=== PATIENT | male | born 1960 | race African-American/Black ===

== ENCOUNTER 2018-01-28 17:04 | Emergency (ER) | payer OTHER ==
[~2018-01-28] VITALS: Ht 193 cm; Wt 111.1 kg
[~2018-01-28 17:04] MED LIST: ACETAMINOPHEN-1 EAC1 PO; CALCIUM 500 +1 EAC5 PO; CARTIA XT120 M1 PO; CENTRUM SILVER1 EAC2 PO; COZAAR 50 MG TA50 M1 PO; ELIQUIS5 MG PO; IRON325 PO; NORCO 7.5-3251 EACH PO
[2018-01-28] MEDS ORDERED: HYDRALAZINE 2525 MG PO (17:18)
[2018-01-28] MEDS ORDERED: FOLGARD TABLET1 EAC1 PO (17:20)
[2018-01-28] MEDS ORDERED: VITAMIN B-12500 MCG PO (17:20)
[2018-01-28 17:39] LABS: URINE BILIRUBIN NEGATIVE (Negative); URINE BLOOD NEGATIVE (Negative); URINE CLARITY CLEAR; URINE COLOR YELLOW; URINE GLUCOSE-RANDOM NEGATIVE (Negative); URINE KETONES NEGATIVE (Negative); URINE LEUKOCYTES NEGATIVE (Negative); URINE NITRITE NEGATIVE (Negative); URINE PROTEIN 1+ (Negative); URINE UROBILINOGEN 0.2 E.U./dl (0.2-1.0)
[2018-01-28 17:57] LABS: ABSOLUTE EOSINOPHILS 0.1 thou/uL (0.0-0.7); ABSOLUTE LYMPHOCYTES 1.2 thou/uL (0.8-5.3); ABSOLUTE MONOCYTES 0.5 thou/uL (0.0-1.2); ABSOLUTE NEUTROPHILS 1.8 thou/uL (1.6-8.1); BASOPHILS 0.3 %; EOSINOPHILS 3.6 %; HEMOGLOBIN 14.2 gm/dL (14.0-18.0); LYMPHOCYTES 33.6 %; MCHC 33.7 g/dL (28.0-37.0); MONOCYTES 12.3 %; NUCLEATED RBCS 0 /100WBC; PLATELET COUNT* 111 thou/uL (150-400); POLYS 50.2 %; RBC 4.57 mil/uL (4.50-6.00); WBC 3.7 thou/uL (4.0-11.0)
[2018-01-28 18:02] LABS: APTT 29.3 Seconds (25.0-31.3); PROTIME 10.5 Seconds (9.20-11.50)
[2018-01-28 18:05] LABS: CALCIUM 8.2 mg/dL (8.5-10.1); CREATININE 1.5 mg/dL (0.6-1.3); POTASSIUM 4.4 mmol/L (3.5-5.1)
[2018-01-28 18:09] LABS: ALBUMIN 3.4 g/dL (3.4-5.0); TOTAL BILIRUBIN 0.4 mg/dL (<0.1-1.0); TOTAL PROTEIN 6.4 g/dL (6.4-8.2)
[2018-01-28] MEDS ORDERED: ONDANSETRON HCL4 M2 PO (19:30)
[2018-01-28 19:58] VITALS: BP 139/101
== END 2018-01-28 19:58 | disposition home or self-care (01) ==
LOC: M.ERS 17:04
PROVIDERS: Nurse Practitioner Family
DX: R10.9 Unspecified abdominal pain (principal); M54.9 Dorsalgia, unspecified; I48.91 Unspecified atrial fibrillation; I10 Essential (primary) hypertension; Z88.6 Allergy status to analgesic agent

== ENCOUNTER 2021-01-04 07:23 | Emergency (ER) | payer MEDICARE ==
[~2021-01-04] VITALS: Ht 193 cm; Wt 106.6 kg
[~2021-01-04 07:23] MED LIST changes: +FOLGARD TABLET1 EAC1 PO; +HYDRALAZINE 2525 MG PO; +ONDANSETRON HCL4 M2 PO; +VITAMIN B-12500 MCG PO
[2021-01-04] MEDS ORDERED: SPIRONOLACTONE25 MG PO (07:37)
[2021-01-04] MEDS ORDERED: NORVASC5 MG PO (07:37)
[2021-01-04] MEDS ORDERED: METOPROLOL SUCC50 MG PO (07:37)
[2021-01-04 08:07] LABS: HEMATOCRIT 40.4 % (42.0-52.0); HEMOGLOBIN 13.7 gm/dL (14.0-18.0); MCH 31.7 pg (26.0-34.0); MCHC 33.8 g/dL (28.0-37.0); MCV 93.7 fL (80.0-100.0); MPV 8.2 fl. (7.2-11.1); RBC 4.31 mil/uL (4.50-6.00); RDW-CV 13.1 % (10.5-14.5); WBC 5.5 thou/uL (4.0-11.0)
[2021-01-04 08:15] LABS: CALCIUM 8.8 mg/dL (8.5-10.1); CREATININE 1.5 mg/dL (0.6-1.3); POTASSIUM 4.7 mmol/L (3.5-5.1)
[2021-01-04 08:19] LABS: ALBUMIN 4.2 g/dL (3.4-5.0); TOTAL BILIRUBIN 0.5 mg/dL (<0.1-1.0); TOTAL PROTEIN 7.4 g/dL (6.4-8.2)
[2021-01-04] MEDS ORDERED: CLINDAMYCIN HC300 MG PO (08:51)
[2021-01-04 09:45] VITALS: BP 151/90
== END 2021-01-04 09:47 | disposition home or self-care (01) ==
LOC: M.ERS 07:23
PROVIDERS: Emergency Medicine Emergency Medical Services
DX: K11.20 Sialoadenitis, unspecified (principal); I10 Essential (primary) hypertension; I48.91 Unspecified atrial fibrillation; Z98.84 Bariatric surgery status; Z79.899 Other long term (current) drug therapy; Z88.8 Allergy status to other drugs, medicaments and biological substances